=== PATIENT | male | born 1970 | race Caucasian/White ===

== ENCOUNTER 2021-01-02 13:41 | Emergency (ER) | payer OTHER, SELFPAY ==
[2021-01-02 13:45] VITALS: BP 149/89; PULSE 71; RESP 16; TEMP 36.7; O2SAT 98
[2021-01-02 14:01] VITALS: PULSE 70
--- NOTE | 2021-01-02 14:08 | ECG_ITS ---
Measurements Intervals [place] Rate: 67 P: 67 GA: 127 QRS: 61 QRSD: 98 T: 74 QT: 408 QTc: 431 Interpretive Statements SINUS RHYTHM INCOMPLETE RIGHT BUNDLE BRANCH BLOCK BORDERLINE ECG Electronically Signed On 01-02-2021 15:15:38 [employer] by Marlon Bailey D.O.
--- NOTE | 2021-01-02 14:10 | ED.GENADULT ---
HPI - General Adult General Chief complaint: Chest Pain Stated complaint: chest pains Source: patient Mode of arrival: ambulatory Limitations: no limitations History of Present Illness HPI narrative: Lloyd is a 50M with a PMH of tobacco abuse that presented to the ED because he had chest pain last night at 0330. He was having a lot of gas then had a burning in his chest that went up his throat and down his left arm. It lasted several minutes then went away. No N/V, lightheadedness, SOB or syncope. No family history of early heart troubles. Related Data Home Medications Medication Instructions Recorded Confirmed No Home Medications 01/02/21 01/02/21 Allergies Allergy/AdvReac Type Severity Reaction Status Date / Time No Known Allergies Allergy Mild Unverified 06/17/09 08:50 Review of Systems Constitutional: Constitutional: Denies chills, Denies fever(s) and Denies weakness Eyes: Eyes: Reports no additional eye complaints ENT: Reports system reviewed and no additional complaints, except as documented Cardiovascular: Cardiovascular: Reports as per HPI Respiratory: Respiratory: Reports no additional respiratory complaints Gastrointestinal: Gastrointestinal: Reports no additional gastrointestinal complaints Genitourinary: Genitourinary: Reports no additional male genitourinary complaints Musculoskeletal: Musculoskeletal: Reports no additional musculoskeletal complaints Integumentary/Breasts: Skin/Breast: Reports system reviewed and no additional complaints, except as docu Neurologic: Reports system reviewed and no additional complaints, except as documented Psychiatric: Psychiatric: Reports no additional psychiatric complaints [facility] Social History Social History Smoking status: Current every day smoker Alcohol intake: never Exam Const: General: no acute distress and alert Orientation/consciousness: patient oriented x3 Limitations: No altered mental status HENMT: Head: normal to inspection Other: atraumatic Eyes: Conjunctivae: conjunctivae normal Pupils: Equal, round and reactive pupils present Neck: Neck: normal visual inspection Chest: Chest palpation & inspection: normal inspection of the chest Resp: Effort & Inspection: normal respiratory effort Auscultation: clear to auscultation bilaterally Cardio: Rate: regular rate Rhythm: regular rhythm Heart sounds: no murmurs GI: Inspection: non-distended GI Palp: Yes Soft to palpation, No Tenderness to palpation present (GI) and No Guarding due to palpation present (GI) Back/Spine/Pelvis: Back: no CVA tenderness Skin: General skin exam: normal color Rashes: no rashes Neuro: General: patient oriented x3 and moves all extremities Extrem: General: normal to inspection Course Course Emergency Course: Lloyd was evaluated. Ordered EKG and labs as below. EKG showed NSR with a rate of 67, normal axis, and no ST elevation/depression Labs were wnl. Given his pain had completely subsided and workup showed no abnormalities he was discharged to f/u with his PCP. Vital Signs Vital signs: Vital Signs Temperature 98.1 F 01/02/21 13:45 Pulse Rate 71 01/02/21 13:45 Respiratory Rate 16 01/02/21 13:45 Blood Pressure 149/89 H 01/02/21 13:45 Pulse Oximetry 98 01/02/21 13:45 Temperature 98.1 F 01/02/21 13:45 Pulse Rate 70 01/02/21 14:01 Respiratory Rate 16 01/02/21 13:45 Blood Pressure 149/89 H 01/02/21 13:45 Pulse Oximetry 98 01/02/21 13:45 Medical Decision Making Vital Signs Vital Signs: Vital Signs Temperature 98.1 F 01/02/21 13:45 Pulse Rate 71 01/02/21 13:45 Respiratory Rate 16 01/02/21 13:45 Blood Pressure 149/89 H 01/02/21 13:45 Pulse Oximetry 98 01/02/21 13:45 Temperature 98.1 F 01/02/21 13:45 Pulse Rate 70 01/02/21 14:01 Respiratory Rate 16 01/02/21 13:45 Blood Pressure 149/89 H 01/02/21 13:45 Pulse
[2021-01-02 14:25] LABS: Basophils Absolute Auto 0.07 K/mm3 (0.00-0.10); Basophils Percent Auto 0.7 % (0.0-1.0); Eosinophils Absolute Auto 0.28 K/mm3 (0.02-0.50); Eosinophils Percent Auto 2.9 % (1.0-6.0); Hematocrit 43.7 % (40.0-54.0); Immature Granulocyte Absolute 0.02 K/mm3 (0.00-0.00); Immature Granulocyte Percent A 0.2 % (0.0-0.0); Lymphocytes Absolute Auto 2.94 K/mm3 (1.10-4.50); Lymphocytes Percent Auto 30.4 % (18.0-42.0); Mean Corpuscular HGB Conc 34.3 g/dL (32.0-36.0); Mean Corpuscular Hemoglobin 30.4 pg (27.0-31.0); Mean Corpuscular Volume 88.6 fL (78.0-102.0); Mean Platelet Volume 8.8 fl (8.7-11.0); Monocytes Absolute Auto 0.83 K/mm3 (0.10-0.90); Monocytes Percent Auto 8.6 % (2.0-11.0); Neutrophils Absolute Auto 5.5 K/mm3 (1.7-7.2); Neutrophils Percent Auto 57.2 % (50.0-70.0); Platelet Count Result 242 K/mm3 (150-420); Red Blood Count 4.93 M/mm3 (4.70-6.10); Red Cell Distribution Width 12.8 % (11.6-14.4); White Blood Count 9.7 K/mm3 (4.8-10.8)
[2021-01-02 14:40] LABS: BNP 6.7 pg/mL (0-100)
[2021-01-02 14:45] LABS: Alanine Aminotransferase 14 U/L (16-63); Albumin Level 3.8 g/dL (3.4-5.0); Alkaline Phosphatase 105 U/L (46-116); Anion Gap 9 mmol/L (8-16); Aspartate Amino Transferase 12 U/L (15-37); Bilirubin,Total 0.3 mg/dL (0.00-1.00); Blood Urea Nitrogen 11 mg/dL (7-18); Calcium 8.4 mg/dL (8.5-10.1); Carbon Dioxide 27 mmol/L (21-32); Chloride 104 mmol/L (98-108); Estimated CRCL calculation 79 ml/min; Estimated Glomerular Filt Rate > 60; Glucose 76 mg/dL (70-99); Osmolality Calculated 288 mOsm/kg (285-295); Potassium 3.8 mmol/L (3.5-5.1); Sodium 140 mmol/L (136-145); Total Protein 6.8 g/dL (6.4-8.2)
[2021-01-02 14:53] LABS: Troponin I 5.7 ng/L (0.00-60.4)
[2021-01-02 15:13] VITALS: BP 121/78; PULSE 80; RESP 20; TEMP 36.8; O2SAT 99
== END 2021-01-02 15:16 | disposition home or self-care (01) ==
PROVIDERS: Emergency Provider Family Medicine; PCP Family Medicine
DX: R07.9 Chest pain, unspecified (principal)
CPT/HCPCS: 36415; 80053; 83880; 84484; 85025; 93005; 99283; 99284

== ENCOUNTER 2021-06-20 16:00 | Outpatient (CLI) | payer OTHER, SELFPAY ==
[2021-06-20 16:40] LABS: Basophils Absolute Auto 0.1 K/mm3 (0.0-0.1); Basophils Percent Auto 0.8 % (0.2-1.2); Eosinophils Absolute Auto 0.3 K/mm3 (0-0.3); Eosinophils Percent Auto 3.4 % (0-4.4); Hematocrit 47.5 % (42.0-52.0); Hemoglobin 15.8 g/dL (14.0-18.0); Immature Granulocyte Absolute 0.02 K/mm3 (0.00-0.031); Immature Granulocyte Percent A 0.3 % (0-0.5); Lymphocytes Absolute Auto 2.59 K/mm3 (0.9-3.2); Lymphocytes Percent Auto 32.6 % (18.3-44.2); Mean Corpuscular HGB Conc 33.3 g/dl (32-36); Mean Corpuscular Hemoglobin 30.3 pg (26-34); Mean Corpuscular Volume 91.2 fl (80-100); Mean Platelet Volume 8.8 fl (7.4-10.4); Monocytes Absolute Auto 0.5 K/mm3 (0.1-0.6); Monocytes Percent Auto 6.7 % (2.6-8.5); Neutrophils Absolute Auto 4.5 K/mm3 (1.3-6.7); Neutrophils Percent Auto 56.2 % (45.5-73.1); Platelet Count Result 252 k/mm3 (150-375); Red Blood Count 5.21 M/mm3 (4.6-6.20); Red Cell Distribution Width 13.9 % (11.5-14.5); White Blood Count 7.9 K/mm3 (4.5-10.0)
[2021-06-20 16:51] LABS: Alanine Aminotransferase 11 U/L (4-50); Albumin Level 4.1 g/dL (3.5-5.1); Alkaline Phosphatase 92 U/L (38-126); Anion Gap 6 mmol/L (8-16); Aspartate Amino Transferase 20 U/L (17-59); Bilirubin,Total 0.4 mg/dL (0.2-1.3); Blood Urea Nitrogen 13 mg/dL (9-20); Calcium 9.2 mg/dL (8.4-10.2); Carbon Dioxide 27 mmol/L (22-30); Chloride 106 mmol/L (98-107); Estimated Glomerular Filt Rate > 60; Glucose 87 mg/dL (65-110); Potassium 4.4 mmol/L (3.4-5.0); Sodium 139 mmol/L (137-145)
== END 2021-06-20 16:01 | disposition home or self-care (01) ==
LOC: ANHLAB 16:02
PROVIDERS: PCP Family Medicine; Visit Provider Nurse Practitioner Family
DX: R42 Dizziness and giddiness (principal); R53.83 Other fatigue; R51.9 Headache, unspecified
CPT/HCPCS: 36415; 80053; 85025

== ENCOUNTER 2021-07-22 09:00 | Outpatient (RCR) | payer OTHER, SELFPAY ==
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
--- NOTE | 2021-08-27 09:10 | PTOPEVAL ---
Thank you for referring Lloyd Calle to [facility].? The patient is scheduled to be seen for therapy? ____x/week for ___ weeks. Please review, sign, date and return this plan of care LINDA. I agree with and certify that the following plan of care is medically necessary. Referring Physician Date Admitting Provider: Attending Provider: SATNAM CHEUNG Referring Provider: ASHLEY Outpatient Evaluation Start: 07/22/21 09:03 Freq: Status: Active Protocol: Document 08/27/21 08:13 ACR (Rec: 08/27/21 09:09 ACR [id number]) Therapy Assessment Status Assessment Status Assessment Status Progress Outpatient Past Medical History Cardiovascular History Hx Hypertension Yes Evaluation Information Problem Diagnosis LBP with scaitica Onset 06/21/21 Subjective Information Patient states that he has not Query Text:As Reported By Patient/ been to therapy in a few Family weeks due to COVID-19. He states he has been doing his exercises at home, but got an MRI which showed a protruding disc. The MD would like to do surgery, but the patient is hesitant. Patient states the foot is getting progressively worse. Pain Assessment Timing of Pain Assessment Timing of Pain Assessment Assessment Pain Scale Pain Scale Used Numeric (1 - 10) Self Report Pain Assessment Left Back Reported Pain Level 5 Greatest Pain Intensity 8 Pain Score Pain Score 5: Self Report Interventions Used Interventions Used By Clinicians Activity or ADL's,Electrical Stimulation,Exercise,Heat Cervical and Lumbar ROM Lumbar ROM Lumbar Flexion (0-90) 30 Query Text:Active in Degrees Lumbar Extension (0-40) 40 Query Text:Active in Degrees Lumbar Lateral Flexion Right (0-40) 40 Query Text:Active in Degrees Lumbar Lateral Flexion Left (0-40) 40 Query Text:Active in Degrees Lateral Rotation Right (0-45) 30 Query Text:Active in Degrees Lateral Rotation Left (0-45) 30 Query Text:Active in Degrees Lower Extremity Muscle Strength Testing Hip Strength Right Hip Flexion Strength 5 Normal Left Hip Flexion Strength 3+ Fair + Knee Strength Right Knee Flexion Strength 5 Normal Knee Extension Strength 5 Normal Left Knee Flexion Strength 3 Fair Knee Extension Strength 3+ Fair + Ankle Strength Right Ankle Dorsiflexion Strength 5 Normal Ankle Plantarflexion Str
== END 2021-08-27 23:59 | disposition home or self-care (01) ==
LOC: CHSPT 09:00
PROVIDERS: PCP Family Medicine
DX: M54.42 Lumbago with sciatica, left side (principal); M54.41 Lumbago with sciatica, right side
CPT/HCPCS: 97012; 97014; 97110; 97161; G0283

== ENCOUNTER 2025-09-01 13:46 | Emergency (ER) | payer OTHER, SELFPAY ==
--- OUTSIDE RECORDS SUMMARY | 2025-09-01 13:59 | XMS_ITS | Clinical Summary ---
Author Organization [facility] Address [address] [place] [address] Care Team Providers Care Core Stacker Name Role Phone Lefty Godinez MD Primary Care Provider Allergies No known active allergies Medications acetaminophen (TYLENOL) 325 mg tablet Take 650 mg by mouth every 6 (six) hours as needed for pain Active tiZANidine (ZANAFLEX) 2 mg tablet Take 1-2 TID 45 tablet 1 Active Additional Information Patient not taking.Reported on 09/18/2021 meloxicam (MOBIC) 15 mg tablet TAKE 1 TABLET BY MOUTH WITH FOOD 30 tablet 1 Active Additional Information Patient not taking.Reported on 09/18/2021 gabapentin (NEURONTIN) 300 mg capsule Gabapentin 300 mg. Take 1 at HS, if tolerated after 5 days may increase to 2 at HS. 60 capsule 1 Active Additional Information Patient not taking.Reported on 09/18/2021 Active Problems No known active problems Surgical History Surgery Date Site/Laterality Comments FL UPPER GI AIR CONTRAST W KUB 09/02/2021 Left FL UPPER GI AIR CONTRAST W KUB 09/23/2021 Left FL UPPER GI AIR CONTRAST W KUB 10/14/2021 Left Medical History Medical History Date Comments Tobacco use Family History Medical History Relation Name Comments Hypertension Father Mental illness Father Stroke Father Kidney disease Mother Relation Name Status Comments Father Mother Social History Tobacco Use Types Packs/Day Years Used Date Smoking Tobacco: Every Day Cigarettes Personal Safety Answer Date Recorded Getting School Help Needed Not on file 01/30 Sex and Gender Information Value Date Recorded Sex Assigned at Not on file Legal Sex Male 10:17 AM CDT Gender Identity Not on file Sexual Orientation Not on file 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 Not on file Not on file Obstetrics History Last Filed Vital Signs Vital Sign Reading Time Taken Comments Blood Pressure 147/100 10/14/2021 10:06 AM [employer] Pulse 79 10/14/2021 9:56 AM [employer] Temperature - - Respiratory Rate 18 10/14/2021 9:56 AM [employer] Oxygen Saturation 97% 10/14/2021 9:56 AM [employer] Inhaled Oxygen Concentration - - Weight 93 kg (205 lb) 11/13/2021 8:27 AM [employer] Height 188 cm (6' 2) 11/13/2021 8:27 AM [employer] Body Mass Index 26.32 11/13/2021 8:27 AM [employer] Plan of Treatment Not on file Care Teams Core Stacker Relationship Specialty Start Date End Date Lefty Godinez MD [address] [facility] [address] [place] [address] PCP - General Family Medicine 08/14/21
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
--- NOTE | 2025-09-01 21:21 | PC.NURSE ---
[facility] updated this HS that pt family is consenting to donate the patient to [facility]. [facility] is filling out all paperwork and will update on retrieval status.
== END 2025-09-01 18:37 | disposition expired ==
PROVIDERS: Emergency Provider Emergency Medicine; PCP Family Medicine
DX: I46.9 Cardiac arrest, cause unspecified (principal); Z87.891 Personal history of nicotine dependence
CPT/HCPCS: 31500; 36415; 92950; 99285; J0168